=== PATIENT | male | born 1970 | race Caucasian/White ===

== ENCOUNTER 2020-10-02 10:13 | Inpatient (IN) | payer OTHER ==
[2020-10-02 11:02] VITALS: BMI 28.7
[2020-10-02] MEDS ORDERED: chlordiazePOXIDE HCL 25 MG CAPSULE PO PRN (12:34)
[2020-10-02] MEDS ORDERED: BISMUTH SUBSALICYLATE 262 MG/15 ML BTL PO PRN (12:34)
[2020-10-02] MEDS ORDERED: NICOTINE POLACRILEX 2 MG GUM BUC PRN (12:34)
[2020-10-02] MEDS ORDERED: MAGNESIUM CITRATE 300 ML BOTTLE PO PRN (12:34)
[2020-10-02] MEDS ORDERED: cloNIDine HCL 0.1 MG TABLET PO PRN (12:34)
[2020-10-02] MEDS ORDERED: ONDANSETRON *ODT* 4 MG TABLET SL PRN (12:34)
[2020-10-02] MEDS ORDERED: MENTHOL/PHENOL 1 EACH UD MM PRN (12:34)
[2020-10-02] MEDS ORDERED: METHADONE HCL 10 MG TABLET (FOR DETOX USE ONLY) PO ONE (12:34)
[2020-10-02] MEDS ORDERED: MAGNESIUM HYDROX 2400MG/30ML ORAL SUSPENSION 30 ML CUP PO PRN (12:34)
[2020-10-02] MEDS ORDERED: ACETAMINOPHEN 325 MG TABLET (FP) PO PRN ×2 (12:34)
[2020-10-02] MEDS: chlordiazePOXIDE HCL 25 MG CAPSULE PO SCH ×3 (13:02→23:11)
[2020-10-02] MEDS: NICOTINE 21 MG/24 HOURS TOPICAL PATCH TD SCH (13:06)
[2020-10-02] MEDS: PRENATAL VITAMINS W/ FOLIC ACID TABLET (FP) PO SCH (13:06)
[2020-10-02] MEDS: hydrOXYzine PAMOATE 25 MG CAPSULE (FP) PO SCH ×3 (13:11→23:11)
[2020-10-02 17:23] LABS: POTASSIUM 4.2 mmol/L (3.5-5.1)
[2020-10-02 17:24] LABS: HEMATOCRIT 37.4 % (35.4-49); HEMOGLOBIN 12.4 GM/dL (11.7-16.9); MCH 29.7 pg (25.7-33.7); MCHC 33.1 g/dl (32.0-35.9); MEAN CELL VOLUME 89.8 fl (80-96); MEAN PLT VOLUME 8.3 fl (7.5-11.1); PLATELET COUNT 325 K/MM3 (134-434); RBC 4.17 M/mm3 (4.00-5.60); RDW 15.9 % (11.9-15.9); WHITE BLOOD COUNT 7.1 K/mm3 (4.0-10.0)
[2020-10-02 17:27] LABS: ALBUMIN 3.8 g/dl (3.4-5.0)
[2020-10-02 17:29] LABS: BLOOD UREA NITROGEN 14.1 mg/dL (7-18); CALCIUM 9.2 mg/dL (8.5-10.1)
[2020-10-02] MEDS: MAG HYDROX/AL HYDROX/SIMETH 30 ML UNIT-DOSE CUP PO PRN (17:30)
[2020-10-02 17:31] LABS: CREATININE 0.8 mg/dL (0.55-1.3)
[2020-10-02 17:32] LABS: BILIRUBIN,TOTAL 0.4 mg/dL (0.2-1); TOT PROT 7.6 g/dl (6.4-8.2)
[2020-10-02 18:25] LABS: HIV INTERPRETATION NEGATIVE (NEGATIVE)
[2020-10-02] MEDS: METHOCARBAMOL 500 MG TABLET PO PRN (19:20)
[2020-10-02] MEDS: IBUPROFEN 400 MG TABLET (FP) PO PRN (19:21)
[2020-10-02] MEDS: DIVALPROEX SODIUM 500 MG TABLET E.C. PO SCH (23:08)
[2020-10-02] MEDS: THIAMINE HCL 100 MG TABLET (FP) PO SCH (23:09)
[2020-10-02] MEDS: QUEtiapine FUMARATE 300 MG TABLET PO SCH (23:09)
[2020-10-02] MEDS: MELATONIN 5 MG TABLETS PO SCH (23:11)
[2020-10-03] MEDS: IBUPROFEN 400 MG TABLET (FP) PO PRN ×2 (02:09→20:21)
[2020-10-03] MEDS: MAG HYDROX/AL HYDROX/SIMETH 30 ML UNIT-DOSE CUP PO PRN ×2 (02:12→08:08)
[2020-10-03] MEDS: chlordiazePOXIDE HCL 25 MG CAPSULE PO SCH ×4 (05:51→22:38)
[2020-10-03] MEDS: hydrOXYzine PAMOATE 25 MG CAPSULE (FP) PO SCH ×5 (05:53→22:38)
[2020-10-03] MEDS ORDERED: METHADONE HCL 10 MG TABLET (FOR DETOX USE ONLY) ONE (09:38)
[2020-10-03] MEDS ORDERED: METHADONE HCL 5 MG TABLET (FOR DETOX USE ONLY) ONE (09:38)
[2020-10-03] MEDS ORDERED: METHADONE (DETOX) 20 MG, METHADONE (DETOX) 5 MG PO ONE (10:00)
[2020-10-03] MEDS: CITALOPRAM HYDROBROMIDE 20 MG TABLET PO SCH (10:31)
[2020-10-03] MEDS: NICOTINE 21 MG/24 HOURS TOPICAL PATCH TD SCH (10:33)
[2020-10-03] MEDS: PRENATAL VITAMINS W/ FOLIC ACID TABLET (FP) PO SCH (10:36)
[2020-10-03] MEDS: PANTOPRAZOLE 40 MG TABLET PO SCH (11:45)
[2020-10-03] MEDS: METHOCARBAMOL 500 MG TABLET PO PRN (20:21)
[2020-10-03] MEDS: DIVALPROEX SODIUM 500 MG TABLET E.C. PO SCH (22:37)
[2020-10-03] MEDS: QUEtiapine FUMARATE 300 MG TABLET PO SCH (22:38)
[2020-10-03] MEDS: THIAMINE HCL 100 MG TABLET (FP) PO SCH (22:38)
[2020-10-03] MEDS: MELATONIN 5 MG TABLETS PO SCH (22:39)
[2020-10-04] MEDS: IBUPROFEN 400 MG TABLET (FP) PO PRN (05:04)
[2020-10-04] MEDS: MAG HYDROX/AL HYDROX/SIMETH 30 ML UNIT-DOSE CUP PO PRN (05:04)
[2020-10-04] MEDS: hydrOXYzine PAMOATE 25 MG CAPSULE (FP) PO SCH ×5 (05:58→22:54)
[2020-10-04] MEDS: chlordiazePOXIDE HCL 25 MG CAPSULE PO SCH ×3 (05:58→17:15)
[2020-10-04] MEDS ORDERED: MASKS NR ONE (06:32)
[2020-10-04] MEDS ORDERED: METHADONE HCL 10 MG TABLET (FOR DETOX USE ONLY) PO ONE (10:00)
[2020-10-04] MEDS: PRENATAL VITAMINS W/ FOLIC ACID TABLET (FP) PO SCH (10:04)
[2020-10-04] MEDS: PANTOPRAZOLE 40 MG TABLET PO SCH (10:04)
[2020-10-04] MEDS: CITALOPRAM HYDROBROMIDE 20 MG TABLET PO SCH (10:04)
[2020-10-04] MEDS: NICOTINE 21 MG/24 HOURS TOPICAL PATCH TD SCH (10:04)
[2020-10-04] MEDS ORDERED: LORazepam 1 MG TABLET PO PRN (17:02)
[2020-10-04] MEDS: LORazepam 2 MG TABLET PO SCH ×2 (17:39→22:34)
[2020-10-04] MEDS: GABAPENTIN 300 MG CAPSULE PO SCH (22:33)
[2020-10-04] MEDS: QUEtiapine FUMARATE 300 MG TABLET PO SCH (22:34)
[2020-10-04] MEDS: THIAMINE HCL 100 MG TABLET (FP) PO SCH (22:34)
[2020-10-04] MEDS: DIVALPROEX SODIUM 500 MG TABLET E.C. PO SCH (22:34)
[2020-10-04] MEDS: MELATONIN 5 MG TABLETS PO SCH (22:53)
[2020-10-05] MEDS ORDERED: chlordiazePOXIDE HCL 10 MG CAPSULE PO PRN
[2020-10-05] MEDS ORDERED: LORazepam 1 MG TABLET PO SCH (05:00)
[2020-10-05] MEDS ORDERED: chlordiazePOXIDE HCL 10 MG CAPSULE PO SCH (05:00)
[2020-10-05] MEDS: hydrOXYzine PAMOATE 25 MG CAPSULE (FP) PO SCH (05:32)
[2020-10-05] MEDS: GABAPENTIN 300 MG CAPSULE PO SCH (05:32)
[2020-10-05 09:21] VITALS: BP 131/72; PULSE 75; TEMP 97.5
[2020-10-05] MEDS ORDERED: METHADONE HCL 5 MG TABLET (FOR DETOX USE ONLY) ONE (09:25)
[2020-10-05] MEDS ORDERED: METHADONE HCL 10 MG TABLET (FOR DETOX USE ONLY) ONE (09:26)
[2020-10-05] MEDS: CITALOPRAM HYDROBROMIDE 20 MG TABLET PO SCH (09:33)
[2020-10-05] MEDS: PANTOPRAZOLE 40 MG TABLET PO SCH (09:33)
[2020-10-05] MEDS ORDERED: METHADONE (DETOX) 10 MG, METHADONE (DETOX) 5 MG PO ONE (10:00)
[2020-10-06] MEDS ORDERED: LORazepam 0.5 MG TABLET PO PRN
[2020-10-06] MEDS ORDERED: LORazepam 0.5 MG TABLET PO SCH (05:00)
[2020-10-06] MEDS ORDERED: chlordiazePOXIDE HCL 10 MG CAPSULE PO SCH (05:00)
[2020-10-06] MEDS ORDERED: METHADONE HCL 10 MG TABLET (FOR DETOX USE ONLY) PO ONE (10:00)
[2020-10-07] MEDS ORDERED: chlordiazePOXIDE HCL 10 MG CAPSULE PO ONE (05:00)
[2020-10-07] MEDS ORDERED: LORazepam 0.5 MG TABLET PO ONE (05:00)
[2020-10-07] MEDS ORDERED: METHADONE HCL 5 MG TABLET (FOR DETOX USE ONLY) PO ONE (06:00)
== END 2020-10-05 09:38 | disposition left against medical advice (07) | DRG 773 ==
LOC: YASAS 10:13 → Y6N 12:14
PROVIDERS: ADMIT Allergy & Immunology; ATTEND Allergy & Immunology
PROC: HZ2ZZZZ Detoxification Services for Substance Abuse Treatment (ICD-10-PCS; principal; 2020-10-02)
DX: F11.23 Opioid dependence with withdrawal (principal); F10.230 Alcohol dependence with withdrawal, uncomplicated; F17.210 Nicotine dependence, cigarettes, uncomplicated; F25.9 Schizoaffective disorder, unspecified; F31.9 Bipolar disorder, unspecified; F19.282 Other psychoactive substance dependence with psychoactive substance-induced sleep disorder; I10 Essential (primary) hypertension; N40.0 Benign prostatic hyperplasia without lower urinary tract symptoms; M16.12 Unilateral primary osteoarthritis, left hip; F91.8 Other conduct disorders; Z91.19 Patient's noncompliance with other medical treatment and regimen; Z87.81 Personal history of (healed) traumatic fracture; Z98.890 Other specified postprocedural states; Z88.0 Allergy status to penicillin; Z56.0 Unemployment, unspecified; Z59.0 Homelessness; Z99.89 Dependence on other enabling machines and devices
CPT/HCPCS: 36415; 80053; 85027; 86780; 87389; C9803; U0003